=== PATIENT | female | born 1960 | race African-American/Black ===

== ENCOUNTER 2019-05-25 11:14 | Observation (INO) | payer BC, OTHER, SELFPAY ==
[2019-05-25 11:37] LABS: #Lymphocytes 1.4 thou/uL (1.20-3.40); #Monocytes 0.2 thou/uL (0.11-0.59); %Basophils 0.7 % (0.0-1.0); %Eosinophils 0.6 % (0.0-10.0); %Lymphocytes 20.2 % (21.0-51.0); %Monocytes 3.5 % (0.0-10.0); %Neutrophils 75.1 % (42.0-75.0); Hemoglobin 14.5 g/dL (12.0-16.0); Mean Corpuscular HGB CONC 32.5 g/dL (32.0-36.0); Mean Corpuscular Volume 89.1 fL (78.0-98.0); Mean Platelet Volume 9.6 fL (7.4-10.4); Platelet Count 268 thou/uL (130-400); RBC Distribution Width 11.8 % (11.5-14.5); Red Blood Cell (RBC) Count 4.98 mill/uL (4.20-5.40); White Blood Cell (WBC) Count 6.7 thou/uL (4.8-10.8)
--- NOTE | 2019-05-25 11:45 | RAD ---
EXAM: Single view of the chest HISTORY: Chest pain COMPARISON: 12/23/2015 FINDINGS: Single view of the chest shows a normal sized cardiomediastinal silhouette. There is no megan dence of consolidation, mass, or pleural effusion. The bones are unremarkable. IMPRESSION: No evidence of acute cardiopulmonary disease
[2019-05-25 12:01] LABS: ALT (SGPT) 40 U/L (8-55); AST (SGOT) 24 U/L (5-34); Albumin 4.4 g/dL (3.5-5.0); Alkaline Phosphatase 318 U/L (40-110); Anion Gap 14 mmol/L (10-20); BUN (Urea Nitrogen) 17 mg/dL (9.8-20.1); Bilirubin, Total 0.4 mg/dL (0.2-1.2); CK (CPK) 46 U/L (29-168); Calc. Creatinine Clearance 0 mL/min (70-130); Calcium 10.4 mg/dL (7.8-10.44); Carbon Dioxide 23 mmol/L (22-29); Chloride 100 mmol/L (98-107); Estimated GFR-MDRD 48; Globulin 3.5 g/dL (2.4-3.5); Potassium 3.9 mmol/L (3.5-5.1); Protein, Total 7.9 g/dL (6.0-8.3); Sodium 133 mmol/L (136-145)
[2019-05-25 12:07] LABS: Glucose 596 mg/dL (70-105)
[2019-05-25] MEDS ORDERED: Aspirin Chewable 81 MG TAB ONE (12:09)
[2019-05-25] MEDS ORDERED: Labetalol HCl 100 MG/20 ML VIAL ONE (12:09)
[2019-05-25] MEDS ORDERED: Insulin Regular 300 UNITS/3 ML VIAL ONE (12:22)
[2019-05-25] MEDS ORDERED: Ondansetron PF 4 MG/2 ML Vial IVP PRN ×2 (12:45→16:05)
[2019-05-25] MEDS ORDERED: Ondansetron ODT 4 MG TAB SL PRN (12:45)
[2019-05-25] MEDS ORDERED: Acetaminophen 325 MG TAB PO PRN (12:45)
[2019-05-25 13:11] LABS: Bilirubin Negative (Negative); Blood, Urine Negative (Negative); Clarity Clear (Clear); Glucose, Urine (Dipstick) Greater than 1000 mg/dL (Negative); Leukocyte Negative Leu/uL (Negative); Nitrite Negative (Negative); Protein, Urine (Dipstick) Negative (Neg-Trace); Urobilinogen Normal mg/dL (Less than 2)
[2019-05-25 14:42] VITALS: BMI 28.3
[2019-05-25] MEDS ORDERED: Senokot S 8.6-50 MG TAB PO PRN (16:05)
[2019-05-25] MEDS ORDERED: Ondansetron ODT 4 MG TAB PO PRN (16:05)
[2019-05-25] MEDS ORDERED: Acetaminophen 650 MG Suppository PR PRN (16:05)
[2019-05-25] MEDS ORDERED: Guaifenesin DM 100-10/5 ML UDCUP PO PRN (16:05)
[2019-05-25] MEDS ORDERED: Nitroglycerin 0.4 MG TAB (25 Tab Bottle) PO PRN (16:05)
[2019-05-25] MEDS ORDERED: Dextrose 50% Abboject 50 ML SYRINGE SLOW IVP PRN (16:06)
[2019-05-25] MEDS ORDERED: HumaLOG 300 UNITS/3 ML VIAL SC PRN (16:06)
[2019-05-25] MEDS ORDERED: Dextrose 5% in Water 1,000 ML IV PRN (16:06)
[2019-05-25] MEDS ORDERED: hydrALAZINE 20 MG/ML VIAL SLOW IVP PRN (16:26)
[2019-05-25] MEDS ORDERED: Labetalol HCl 100 MG/20 ML VIAL SLOW IVP PRN (16:27)
--- NOTE | 2019-05-25 17:28 | HP ---
PRIMARY CARE PHYSICIAN: Sue Savage. CHIEF COMPLAINT: Chest pain. HISTORY OF PRESENT ILLNESS: This is a 58-year-old female with a known history of diabetes for the last 3 years, not on any medications after she lost her insurance, also with hypertension, she reports that for the last couple of weeks, she has been having chest pains. These are left-sided, anterior wall, sharp chest pains, usually lasts for a few seconds and then resolves. They do radiate down to her left arm, up into her left jaw sometimes, occasionally will move over to the right side of the chest as well, associated with some shortness of breath sometimes as well. She was in her work today and had some of the chest pain, so she told her boss about it and they told her to go to the emergency room. In the ER, she had another episode of chest pain as well. This has since resolved. She was noted to be severely hyperglycemic into the 500s, was given some insulin, was also given IV fluids, aspirin, and some labetalol for severely elevated blood pressure. The patient is currently asymptomatic. REVIEW OF SYSTEMS: CONSTITUTIONAL: No fevers, no chills. EYES: She has occasional blurred vision, this gotten worse recently. ENT: She has had some congestion and a little bit of scratchy throat. CARDIOVASCULAR: See HPI. No palpitations or racing heart. PULMONARY: She has intermittent coughing, she is told she might have asthma once, but has no formal diagnosis, just got an inhaler from the emergency room once, this is not long-standing. GASTROINTESTINAL: She sometimes will have some periumbilical abdominal pain, none currently. No nausea or vomiting. She does tend to be constipated. No diarrhea. GENITOURINARY: No dysuria or hematuria. MUSCULOSKELETAL: No muscle aches or joint pains. SKIN: No rashes or other lesions she has noted. NEUROLOGIC: She has a little bit of tingling in the fingertips of her right hand. No other numbness, tingling, or focal weakness. PAST MEDICAL HISTORY: 1. Diabetes mellitus type 2, on no medications for several years. 2. Hypertension. SURGICAL HISTORY: 1. Hysterectomy. 2. x2. SOCIAL HISTORY: No tobacco, alcohol, or illicit drug use. She is and lives with her . FAMILY HISTORY: Mother and father both had diabetes and hypertension. Father had myocardial infarctions in his 70s and mother had Alzheimer's. ALLERGIES: NO KNOWN DRUG ALLERGIES. CURRENT MEDICATIONS: Multivitamin daily. PHYSICAL EXAMINATION: VITAL SIGNS: Blood pressure 176/82, pulse 79, respirations 16, O2 saturation 100% on room air, temperature 97.9. GENERAL: This is a well-developed, well-nourished, female, in no acute distress. HEENT: Pupils are equal, round, and reactive to light. She does have bilateral cataracts as well. Oropharynx clear without lesions, erythema, or exudate. NECK: Supple. No lymphadenopathy. No thyroid nodules or enlargement. No JVD. HEART: Regular rate and rhythm. No murmurs, rubs, or gallops. LUNGS: Clear to auscultation bilaterally. No wheezes, crackles, or rhonchi. She does have some mild tenderness to palpation in the left anterior chest wall, which reproduces some of the symptoms. ABDOMEN: Soft, nontender to palpation. Normoactive bowel sounds. No hepatosplenomegaly or other masses. EXTREMITIES: No clubbing, cyanosis, or edema. SKIN: No rashes or other lesions noted. NEUROLOGIC: Intact strength and sensation in all extremities. No facial droop. PSYCHIATRIC: Alert and oriented x3. Normal mood and affect. LABORATORY DATA: CBC within normal limits. Complete metabolic panel is notable for a sodium of 133, creatinine of 1.36, and a glucose of 596, down to 332 after 10 units of insulin in the ER. Alkaline phosphatase is 318. The rest of the complete metabolic panel is normal. Troponin is negative x2. Brain natriuretic peptide normal at 11. Urinalysis just shows glucose. Chest x-ray, I did review the chest x-ray done in the emergency room along with the radiologist's report and that shows a normal cardiac silhouette, clear lung dalton. No acute cardiopulmonary process. EKG; first EKG in the emergency room did show sinus tachycardia, this resolved, but in second EKG, there was some possible left atrial enlargement, some left ventricular hypertrophy, and some poor R-wave progression with Q-waves in the lead III with possibility of an old anterior septal infarct. ASSESSMENT: 1. Chest pain. These are atypical chest pains; however, the patient has multiple cardiac risk factors, especially severely uncontrolled hypertension and severely uncontrolled diabetes mellitus. We will continue trending troponins. We will keep the patient on the secured entrance monitor overnight and we will do a stress test in the morning for risk stratification. We will keep her on aspirin daily for now. 2. Hypertensive urgency, now improved after medication in the emergency room. We will start the patient on twice a day metoprolol and we will give p.r.n. as needed for severe blood pressure elevations. 3. Diabetes mellitus type 2, uncontrolled. We will start with Lantus 20 units subcu at night and diabetic diet, and we will need to start her on some diabetes medicines before she is discharged. The patient is going to follow up with the [facility], she has an appointment to get set up with them. 4. Gastrointestinal prophylaxis, put the patient on Pepcid twice a day. 5. Deep venous thrombosis prophylaxis, put the patient on subcu Lovenox. CODE STATUS: I did discuss this with the patient, she is a full code. Should she be incapacitated, her will be her medical decision maker, his name is Nicholas Workman. Job ID: [id number]
[2019-05-25 17:50] LABS: Troponin I Less than 0.010 ng/mL (< 0.028)
[2019-05-25] MEDS: HumaLOG 300 UNITS/3 ML VIAL SC PRN (17:57)
[2019-05-25] MEDS ORDERED: FLU VACC QS2019-20(6MOS UP)/PF 60 MCG/0.5 ML SYRINGE IM ONE (19:15)
[2019-05-25] MEDS ORDERED: diphenhydrAMINE 25 MG CAP PO SCH (20:00)
[2019-05-25] MEDS ORDERED: Insulin Glargine 20 UNITS in Pre-Filled Syringe 1 EACH SC SCH (21:00)
[2019-05-25] MEDS: Acetaminophen 325 MG TAB PO PRN (21:40)
[2019-05-25] MEDS: Metoprolol Tartrate 25 MG TAB PO SCH (21:41)
[2019-05-26 04:50] LABS: #Eosinphils 0.1 thou/uL (0.0-0.7); #Lymphocytes 2.6 thou/uL (1.20-3.40); #Monocytes 0.5 thou/uL (0.11-0.59); #Neutrophils 2.8 thou/uL (1.40-6.50); %Basophils 0.6 % (0.0-1.0); %Lymphocytes 43.4 % (21.0-51.0); %Monocytes 7.4 % (0.0-10.0); %Neutrophils 46.6 % (42.0-75.0); Mean Corpuscular HGB CONC 32.4 g/dL (32.0-36.0); Mean Corpuscular Volume 89.5 fL (78.0-98.0); Platelet Count 224 thou/uL (130-400); RBC Distribution Width 11.8 % (11.5-14.5); Red Blood Cell (RBC) Count 4.15 mill/uL (4.20-5.40)
[2019-05-26 05:06] LABS: Hemoglobin A1c Greater than 14.0 % (4.0-6.0)
[2019-05-26 05:09] LABS: Anion Gap 10 mmol/L (10-20); BUN (Urea Nitrogen) 13 mg/dL (9.8-20.1); Calc. Creatinine Clearance 66 mL/min (70-130); Calcium 8.4 mg/dL (7.8-10.44); Carbon Dioxide 25 mmol/L (22-29); Cardiac Risk 3.4 (Less than 4.5); Chloride 105 mmol/L (98-107); Cholesterol 216 mg/dl (< 200 Desired); Estimated GFR-MDRD 73; Glucose 233 mg/dL (70-105); HDL Cholesterol 63 mg/dL (>60 Neg Risk); LDL Cholesterol, Calculated 135 mg/dL; Potassium 3.6 mmol/L (3.5-5.1); Sodium 136 mmol/L (136-145); Triglycerides 88 mg/dL (Less than 150)
--- NOTE | 2019-05-26 08:00 | PDOC.HOSPP ---
- Subjective Encounter Date: 05/26/19 Encounter Time: 13:00 Subjective: Patient back from stress test. No further chest pain. No symptoms. Knows how to give insulin because she has given to multiple family members in the past. - Objective Vital Signs & Weight: Vital Signs (12 hours) Temp Pulse Resp BP Pulse Ox 05/26/19 03:58 98.1 F 70 15 172/79 H 97 Weight Weight 140 lb 3.2 oz I&O: 05/25/19 05/26/19 05/27/19 06:59 06:59 06:59 Intake Total 360 Output Total 1100 Balance -740 Result Diagrams: 05/26/19 04:30 05/26/19 04:30 Additional Labs: Accuchecks 05/26/19 05/25/19 05/25/19 05:54 21:18 17:30 POC Glucose 217 H 291 H 249 H 05/25/19 13:39 POC Glucose 332 H Hospitalist ROS - Review of Systems Constitutional: denies: fever, chills Respiratory: denies: cough, shortness of breath Cardiovascular: denies: chest pain, palpitations Gastrointestinal: denies: nausea, vomiting, abdominal pain - Medication Medications: Active Medications Generic Name Dose Route Start Last Admin Trade Name Freq PRN Reason Stop Dose Admin Acetaminophen 650 mg 05/25/19 16:05 05/25/19 21:40 Tylenol PO 650 mg Q4H PRN Administration Headache/Fever/Mild Pain (1-3) Insulin Glargine 20 units/ 0.2 mls @ 0 mls/hr 05/25/19 21:00 05/25/19 21:41 Miscellaneous Medication SC 0.2 mls HS DAMIAN Administration Insulin Human Lispro 0 units 05/25/19 16:06 05/25/19 17:57 Humalog SC 3 unit .MILD SLIDING SCALE PRN Administration Mild Correctional Scale Metoprolol Tartrate 25 mg 05/25/19 21:00 05/25/19 21:41 Lopressor PO 25 mg BID DAMIAN Administration - Exam General Appearance: NAD, awake alert ENT: moist mucosa Heart: RRR, no murmur, no gallops, no rubs Respiratory: CTAB, no wheezes, no rales, no ronchi Gastrointestinal: soft, non-tender, non-distended, normal bowel sounds Psychiatric: normal affect, normal behavior, A&O x 3 Hosp A/P (1) Chest pain, rule out acute myocardial infarction Code(s): R07.9 - CHEST PAIN, UNSPECIFIED Status: Resolved (2) Hypertensive urgency Code(s): I16.0 - HYPERTENSIVE URGENCY Status: Resolved (3) HTN (hypertension) Code(s): I10 - ESSENTIAL (PRIMARY) HYPERTENSION Status: Acute (4) Diabetes mellitus type 2 in nonobese Code(s): E11.9 - TYPE 2 DIABETES MELLITUS WITHOUT COMPLICATIONS Status: Acute (5) Acute renal failure Status: Resolved - Plan Stress test negative, ok to d/c home. Blood sugars improved control. Can't take Metformin. HbA1c greater than 14. Will likely need insulin. Teaching and d/c on 70/30 due to no insurance. F/u [facility].
[2019-05-26] MEDS: Acetaminophen 325 MG TAB PO PRN (08:13)
[2019-05-26] MEDS ORDERED: Aspirin 81 mg Enteric Coated Tablet PO SCH (09:00)
[2019-05-26] MEDS ORDERED: Enoxaparin Sodium 40 MG/0.4 ML SYRINGE SC SCH (09:00)
[2019-05-26] MEDS ORDERED: Lisinopril 10 MG TAB PO SCH (09:00)
[2019-05-26] MEDS ORDERED: Famotidine 20 MG TAB PO SCH (09:00)
[2019-05-26] MEDS ORDERED: FLU VACC QS2019-20(6MOS UP)/PF 60 MCG/0.5 ML SYRINGE IM ONE (09:00)
[2019-05-26 11:46] VITALS: BP 134/63; TEMP 98.2
[2019-05-26] MEDS: Metoprolol Tartrate 25 MG TAB PO SCH (11:50)
[2019-05-26] MEDS: HumaLOG 300 UNITS/3 ML VIAL SC PRN (11:50)
--- NOTE | 2019-05-26 13:39 | NM ---
EXAM: NM Cardiac Stress W EF WF PROVIDED CLINICAL HISTORY: Chest pain COMPARISON: None FINDINGS: No significant reversible defect is seen between the stress and resting acquisitions. Rotating planar images demonstrate breast attenuation. The gated images show normal ventricular wall motion and wall thickening. The calculated left ventricular ejection fraction is 87%. IMPRESSION: 1. No significant reversible defect seen to suggest ischemia. 2. Normal LVEF of 87%.
[2019-05-26] MEDS ORDERED: Atorvastatin Calcium 10 MG TAB PO SCH (21:00)
--- NOTE | 2019-05-27 02:57 | DIS ---
DATE OF ADMISSION: 05/25/2019 DATE OF DISCHARGE: 05/26/2019 PRIMARY CARE PHYSICIAN: None. REASON FOR ADMISSION: Chest pain. DIAGNOSES AT DISCHARGE: 1. Chest pain, resolved, noncardiac. 2. Hypertensive urgency, resolved. 3. Diabetes mellitus type 2, uncontrolled. 4. Hypertension. 5. Acute renal failure, resolved. 6. Hypercholesterolemia. PROCEDURES: Nuclear medicine stress testing showing no significant reversible defect to suggest ischemia. Normal left ventricular ejection fraction. CONSULTATIONS: None. SUMMARY HOSPITAL COURSE: This is a 58-year-old female with a known history of diabetes for the last 3 years, not on any medications for couple of years since she lost her insurance, also with hypertension. She presented to the emergency room with a history of chest pain, left-sided anterior wall and sharp chest pain, these were lasting for a few seconds and then resolving. Occasionally radiating down her left arm and sometimes up into her left jaw. She had some chest pain while she was at work, so she was told to go to the emergency room. In the ER, she had another acute episode of chest pain that resolved. She was noted to be severely hyperglycemic in the 500s and also with less severely elevated blood pressures. She was given medication. Her cardiac markers were negative and EKG was negative and she was observed in the hospital. Serial cardiac markers were negative. She had a stress test done that was negative as well. The patient's blood sugar was controlled with long-acting insulin and her blood pressure was controlled with medication. She was feeling asymptomatic by the time of discharge. She was given teaching on diabetes and instruction on injecting insulin. She stated that she had injected insulin for her multiple family members in the past and so she is comfortable doing it. She still does not have any insurance, but does have an appointment with [facility] later this week just for an intake review. We did have the [facility] provide her first month of medications, which I sent over to the pharmacy and they are going to mushroom picker for her and she is being discharged home. DISCHARGE MANAGEMENT: Discharge home. ACTIVITY: As tolerated. DIET: Diabetic diet. EQUIPMENT AND SUPPLIES: Home glucometer. FOLLOWUP: Follow up with [facility] for appointment later this week. DISCHARGE MEDICATIONS: 1. Aspirin 81 mg daily, 30 tablets dispensed. 2. Novolin N 15 units subcu twice a day 2 vials dispense. 3. Lisinopril 10 mg p.o. daily, 30 tablets dispensed. 4. Metoprolol tartrate 25 mg twice a day, 30 capsules dispensed. 5. Simvastatin 20 mg at night, 30 tablets dispensed. Job ID: [id number]
== END 2019-05-26 16:48 | disposition home or self-care (01) ==
LOC: ERS 11:14 → 2SW 12:57
PROVIDERS: ADMIT Emergency Medicine; ATTEND Emergency Medicine
DX: R07.89 Other chest pain (principal); I16.0 Hypertensive urgency; I10 Essential (primary) hypertension; E11.9 Type 2 diabetes mellitus without complications; E78.00 Pure hypercholesterolemia, unspecified; N17.9 Acute kidney failure, unspecified; Z79.899 Other long term (current) drug therapy
CPT/HCPCS: 36415; 36416; 71045; 78452; 80048; 80053; 80061; 81003; 82550; 83036; 83880; 84484; 85025; 90471; 90686; 93005; 93017; 96361; 96372; 96374; A9500; G0008; G0378; J1650; J1815; Q0163

== ENCOUNTER 2019-08-11 12:22 | Emergency (ER) | payer OTHER, SELFPAY ==
[2019-08-11] MEDS ORDERED: Ketorolac Tromethamine 30 MG/ML VIAL ONE (13:11)
== END 2019-08-11 13:30 | disposition home or self-care (01) ==
LOC: ERS 12:22
DX: S16.1XXA Strain of muscle, fascia and tendon at neck level, initial encounter (principal); S29.012A Strain of muscle and tendon of back wall of thorax, initial encounter; I10 Essential (primary) hypertension; Z79.84 Long term (current) use of oral hypoglycemic drugs; Z79.899 Other long term (current) drug therapy; V43.53XA Car driver injured in collision with pick-up truck in traffic accident, initial encounter
CPT/HCPCS: 96372; 99283; J1885

== ENCOUNTER 2020-03-09 09:46 | Emergency (ER) | payer SELFPAY ==
[2020-03-09 16:01] LABS: SARS-CoV-2 MS2 Positive; SARS-CoV-2 N Gene Negative; SARS-CoV-2 S Gene Negative; SARS-CoV-2 by NAA Not Detected (NotDetected); SARS-CoV-2 orf1ab Negative
== END 2020-03-09 10:20 | disposition home or self-care (01) ==
LOC: ERS 09:46
DX: Z20.828 Contact with and (suspected) exposure to other viral communicable diseases (principal); E78.5 Hyperlipidemia, unspecified; E78.00 Pure hypercholesterolemia, unspecified; E11.9 Type 2 diabetes mellitus without complications; I10 Essential (primary) hypertension; Z79.899 Other long term (current) drug therapy
CPT/HCPCS: 87635; 99283; U0003